=== PATIENT | male | born 1985 | race Caucasian/White ===

== ENCOUNTER 2019-04-28 17:32 | Emergency (ER) | payer SELFPAY ==
[~2019-04-28] VITALS: Ht 170.2 cm; Wt 68.0 kg
[2019-04-28 18:07] VITALS: BP 113/63
--- NOTE | 2019-04-28 18:53 | NUR ---
PATIENT LEFT WITHOUT BEING SEEN BY DR. BRAGA. NO FURTHER CARE PROVIDED FOR PATIENT.
== END 2019-04-28 18:53 | disposition left against medical advice (07) ==
LOC: MED 17:32
DX: L02.413 Cutaneous abscess of right upper limb (principal); Z53.21 Procedure and treatment not carried out due to patient leaving prior to being seen by health care provider

== ENCOUNTER 2020-01-08 20:21 | Emergency (ER) | payer MEDICAID ==
[~2020-01-08] VITALS: Ht 170.2 cm; Wt 65.8 kg
[2020-01-08 20:34] VITALS: BP 158/96
--- NOTE | 2020-01-08 20:38 | NUR ---
To ED bed 11 with service dog.
--- NOTE | 2020-01-08 20:42 | NUR ---
34 Y/O MALE BIB SELF WITH C/O OF NUMBNESS ON L SIDE AND "SHARP" PLEURITIC CHEST PAIN 3/10 ONLY ON INSPIRATION X 2.5 DAYS AGO. REPORTS FEELING SORENESS AT SITE. A&OX 4. BILATERAL GRIB STRENGTH NORMAL IN BILATERAL HANDS. PERRLA 3MM BRISK. AMBULATORY WITH STEADY GAIT, FACIAL SYMMETRY NOTED. SERVICE DOG PRESENT AT BEDSIDE. BED LOCKED AND LOWEST POSITION. MEDHX: DENIES ALLERGIES: BEE STINGS, AZITHROMYCIN, TRIMETHOPRIM, SULFA
--- NOTE | 2020-01-08 21:10 | NUR ---
ER RYLEY WILLAMS AT BEDSIDE EVALUATING PT.
[2020-01-08] MEDS ORDERED: LORazepam 0.5 MG TAB PO ONE (21:20)
--- NOTE | 2020-01-08 21:24 | NUR ---
XRAY AT BEDSIDE.
--- NOTE | 2020-01-08 21:30 | NUR ---
Rogelio grimes in [facility] - 01/08/20 at 2130 by [email or web address] EKG BEING PERFORMED AT BEDSIDE.
--- NOTE | 2020-01-08 21:30 | NUR ---
EKG BEING PERFORMED AT BEDSIDE BY EMT.
--- NOTE | 2020-01-08 21:31 | NUR ---
PT REFUSED MEDICATION. RYLEY WILLAMS MADE AWARE.
--- NOTE | 2020-01-08 21:32 | NUR ---
EKG READS "SINUS RHYTHM" AT 95 BEATS PER MINUTE. RYLEY WILLAMS NOTIFIED.
--- NOTE | 2020-01-08 21:50 | NUR ---
PT VERBALIZES, "I SAW SHADOWS OR SOMETHING NEXT TO MY BED". STATES PT WILL WAIT OUTSIDE ROOM AT THIS TIME. IN NO ACUTE DISTRESS NOTED AT THIS TIME.
[2020-01-08 22:05] VITALS: BP 134/88
--- NOTE | 2020-01-08 22:05 | NUR ---
Patient discharged with v/s stable. Written and verbal after care instructions given and explained. Patient alert, oriented and verbalized understanding of instructions. Ambulatory with steady gait. All questions addressed prior to discharge. ID band removed. Patient advised to follow up with PMD. Rx of Vistaril given. Patient educated on indication of medication including possible reaction and side effects. Opportunity to ask questions provided and answered.
== END 2020-01-08 22:05 | disposition home or self-care (01) ==
LOC: MED 20:21
DX: F41.9 Anxiety disorder, unspecified (principal); F17.210 Nicotine dependence, cigarettes, uncomplicated; Z88.1 Allergy status to other antibiotic agents; Z88.2 Allergy status to sulfonamides
CPT/HCPCS: 71045; 93005; 99283; Q0092; 99284

== ENCOUNTER 2021-07-22 20:21 | Emergency (ER) | payer MEDICAID ==
[~2021-07-22] VITALS: Ht 167.6 cm; Wt 59.0 kg
[2021-07-22 20:26] VITALS: BP 114/75
--- NOTE | 2021-07-22 20:36 | NUR ---
PT TAKEN TO BED 04. PLACED IN GOWN AND RAIL WALKER.
--- NOTE | 2021-07-22 20:47 | NUR ---
35 Y/O MALE BIBS FROM WORK, C/O LEFT CHEST/SHOULDER NUMBNESS. PATIENT PRESENTS TO ED WITH "PRESSURE-LIKE IRRITATION" THAT STARTS IN THE UPPER LEFT CHEST AND RADIATES INTO THE JAW AND INTO FINGERTIPS. PT STATES HE HAS BEEN SEEN AT [facility] FOR SAME. PT STATES THE ISSUE LASTS FOR 30-40 MINUTES SEVERAL TIMES A DAY. DENIES N/V/D; SKIN IS PINK/WARM/DRY; AAOX4 WITH EVEN AND STEADY GAIT; LUNGS CLEAR BL; HR EVEN AND REGULAR; PT DENIES ANY FEVER, CP, SOB, OR COUGH AT THIS TIME; PATIENT STATES PAIN OF 0/10 AT THIS TIME; VSS; PATIENT POSITIONED FOR COMFORT; HOB ELEVATED; BEDRAILS UP X2; BED DOWN. ER MD MADE AWARE OF PT STATUS. DENIES PMH/MEDS
--- NOTE | 2021-07-22 20:47 | NUR ---
XRAY AT BEDSIDE
--- NOTE | 2021-07-22 20:50 | NUR ---
BEATER BOSS AT BEDSIDE
[2021-07-22 20:59] LABS: BASOPHILS # (AUTO) 0.1 K/uL (0.00-0.22); EOSINOPHILS # (AUTO) 0.4 K/uL (0-0.4); EOSINOPHILS % (AUTO) 5.2 % (0.0-4.0); HEMATOCRIT 43.5 % (36-52); HEMOGLOBIN 14.9 g/dL (12.0-18.0); LYMPHOCYTES # (AUTO) 2.3 K/uL (2.0-11.5); LYMPHOCYTES % (AUTO) 32.3 % (20.5-51.1); MEAN CORPUSCULAR HEMOGLOBIN 31 pg (27-31); MEAN CORPUSCULAR HGB CONC 34 g/dL (33-37); MEAN CORPUSCULAR VOLUME 89.6 fL (80-94); MONOCYTES # (AUTO) 0.6 K/uL (0.8-1.0); MONOCYTES % (AUTO) 8.6 % (1.7-9.3); NEUTROPHILS # (AUTO) 3.7 K/uL (1.8-7.7); NEUTROPHILS % (AUTO) 52.9 % (42.2-75.2); PLATELET COUNT (AUTO) 340 K/uL (140-450); RED BLOOD CELL COUNT(AUTO) 4.86 MIL/uL (4.20-6.10); RED CELL DISTRIBUTION WIDTH 13.6 % (11.6-13.7); WHITE BLOOD COUNT (AUTO) 7.1 K/uL (4.8-10.8)
[2021-07-22 21:23] LABS: ALBUMIN 3.9 g/dL (3.4-5.0); ANION GAP 10.6 (8-16); CARBON DIOXIDE 30.8 mmol/L (21-32); POTASSIUM 4.4 mmol/L (3.5-5.1); TOTAL BILIRUBIN 0.5 mg/dL (0.0-1.0)
[2021-07-22 21:27] LABS: LIPASE 110 U/L (73-393)
[2021-07-22 22:32] VITALS: BP 115/77
--- NOTE | 2021-07-22 22:32 | NUR ---
Patient discharged with v/s stable. Written and verbal after care instructions given and explained. Patient verbalized understanding. Ambulatory with steady gait. All questions addressed prior to discharge. Advised to follow up with PMD.
== END 2021-07-22 22:32 | disposition home or self-care (01) ==
LOC: MED 20:21
DX: R20.2 Paresthesia of skin (principal); M79.602 Pain in left arm; H53.8 Other visual disturbances
CPT/HCPCS: 36415; 71045; 80053; 83690; 83880; 84484; 85025; 93005; 99285; Q0092